=== PATIENT | female | born 1990 | race Two or more races ===

== ENCOUNTER 2023-04-01 08:14 | Day surgery (SDC) | payer OTHER | END 2023-04-01 19:55 | disposition home or self-care (01) | LOC: CIR.AMB 08:14 | PROVIDERS: Obstetrics & Gynecology; ATTEND Obstetrics & Gynecology | DX: O02.1 Missed abortion (principal); O72.2 Delayed and secondary postpartum hemorrhage; Z20.822 Contact with and (suspected) exposure to COVID-19 ==

== ENCOUNTER 2024-03-23 13:43 | Outpatient (CLI) | payer OTHER ==
[~2024-03-23 13:43] MED LIST: METAXALONE800 MG PO
== END 2024-03-23 14:43 | disposition home or self-care (01) ==
LOC: NST 13:43
PROVIDERS: ATTEND Obstetrics & Gynecology Maternal & Fetal Medicine
DX: Z34.83 Encounter for supervision of other normal pregnancy, third trimester (principal)

== ENCOUNTER 2024-03-27 21:01 | Inpatient (IN) | payer OTHER ==
[~2024-03-27] VITALS: Ht 154.9 cm; Wt 72.6 kg
[2024-03-27] MEDS ORDERED: ERYTHROMYCIN BASE OPHT 1GM EACH TUBE OP ONE ×2 (21:06→23:00)
[2024-03-27] MEDS ORDERED: OXYTOCIN 20 UNITS/1000ML RL PIGGYBAG IV ONE (21:06)
[2024-03-27] MEDS ORDERED: CHLORHEXIDINE GLUCONATE 120 ML BOTTLE TOP ONE (21:07)
[2024-03-27] MEDS ORDERED: LIDOCAINE HCL 1% 10ML VIAL ONE (21:07)
[2024-03-27] MEDS ORDERED: RINGERS SOLUTION,LACTATED 1,000 ML IV SCH (21:15)
[2024-03-27 21:33] LABS: HEMOGLOBIN 13.3 g/dL (12.0-15.00); MEAN CELL VOLUME 97.2 fL (80.00-100.00); MEAN CORPUSCULAR HEMOGLOBIN 33.3 pg (27.00-32.0); MEAN CORPUSCULAR HGB CONC 34.3 g/dl (32.0-36.0); PLATELET COUNT 273 K/uL (150-450); RED BLOOD COUNT 4.01 M/uL (4.00-6.00); RED CELL DISTRIBUTION WIDTH 14.6 % (11.5-14.5)
[2024-03-27 21:39] VITALS: BP 113/60
[2024-03-27 21:43] VITALS: BP 113/60
[2024-03-27] MEDS ORDERED: CHLORHEXIDINE GLUCONATE 120 ML BOTTLE TP SCH (21:45)
[2024-03-27] MEDS ORDERED: IBUprofen 400 MG TABLET PO PRN (21:45)
[2024-03-27 21:50] LABS: INR < 0.93; PARTIAL THROMBOPLASTIN TIME 26.6 SECONDS (22.0-34.0); PROTHROMBIN TIME 10.1 SECONDS (9.0-11.5)
[2024-03-27] MEDS ORDERED: PRENATAL TABLE1 EAC5 PO (21:56)
[2024-03-27] MEDS ORDERED: OXYTOCIN 1,000 ML IV ONE (22:00)
[2024-03-27 22:33] LABS: BILIRUBIN TOTAL 0.42 mg/dL (0.3-1.2); CALCIUM 9.2 mg/dL (8.5-10.1); CREATININE SERUM 0.76 mg/dL (0.55-1.02); GFR 88.76; GLOBULINA 3.9 G/DL (2.4-3.5); POTASSIUM 3.78 mEq/L (3.5-5.1); TOTAL PROTEIN 6.9 gm/dL (6.4-8.2)
[2024-03-27 22:41] VITALS: BP 114/68
[2024-03-27 22:45] VITALS: BP 113/60
[2024-03-27 22:59] VITALS: BP 108/62
[2024-03-27] MEDS ORDERED: LIDOCAINE HCL 1% 10ML VIAL PERCUT ONE (23:00)
[2024-03-27 23:30] VITALS: BP 108/61
[2024-03-28 02:27] VITALS: BP 101/65
[2024-03-28 07:17] LABS: HEMATOCRIT 34.3 % (36.0-45.00); HEMOGLOBIN 11.8 g/dL (12.0-15.00); MEAN CELL VOLUME 97.6 fL (80.00-100.00); MEAN CORPUSCULAR HEMOGLOBIN 33.6 pg (27.00-32.0); MEAN CORPUSCULAR HGB CONC 34.4 g/dl (32.0-36.0); PLATELET COUNT 228 K/uL (150-450); RED BLOOD COUNT 3.51 M/uL (4.00-6.00); RED CELL DISTRIBUTION WIDTH 14.3 % (11.5-14.5)
[2024-03-28] MEDS ORDERED: PNV,CALCIUM 72/IRON/FOLIC ACID 1 TAB TABLET PO SCH (09:00)
[2024-03-28 10:34] VITALS: BP 105/68
[2024-03-28 17:05] VITALS: BP 112/64
[2024-03-28] MEDS ORDERED: SENNA/DOCUSATE SODIUM 1 TAB TABLET PO SCH (21:00)
[2024-03-28 21:53] VITALS: BP 106/75
[2024-03-29 00:36] VITALS: BP 120/77
[2024-03-29 08:51] VITALS: BP 123/72
== END 2024-03-29 17:38 | disposition home or self-care (01) | DRG 807 ==
LOC: LDR 21:01 → OB/GYN 21:01
PROVIDERS: ADMIT Obstetrics & Gynecology Gynecology; ATTEND Obstetrics & Gynecology Gynecology
PROC: 10E0XZZ Delivery of Products of Conception, External Approach (ICD-10-PCS; principal; 2024-03-27)
PROC: 0UQG7ZZ Repair Vagina, Via Natural or Artificial Opening (ICD-10-PCS; 2024-03-27)
PROC: 4A1HXCZ Monitoring of Products of Conception, Cardiac Rate, External Approach (ICD-10-PCS; 2024-03-27)
DX: O71.4 Obstetric high vaginal laceration alone (principal); Z37.0 Single live birth; Z3A.39 39 weeks gestation of pregnancy; Z20.822 Contact with and (suspected) exposure to COVID-19